=== PATIENT | female | born 1980 | race Caucasian/White ===

== ENCOUNTER 2017-06-02 13:07 | Emergency (ER) | payer SELFPAY | END 2017-06-02 14:00 | disposition home or self-care (01) | LOC: ER 13:07 | DX: S02.5XXA Fracture of tooth (traumatic), initial encounter for closed fracture (principal); Z90.49 Acquired absence of other specified parts of digestive tract; Z88.5 Allergy status to narcotic agent; Z88.8 Allergy status to other drugs, medicaments and biological substances; X58.XXXA Exposure to other specified factors, initial encounter; Y93.89 Activity, other specified; Y92.89 Other specified places as the place of occurrence of the external cause; Y99.8 Other external cause status | CPT/HCPCS: 99283 ==

== ENCOUNTER 2017-07-07 13:05 | Emergency (ER) | payer SELFPAY | END 2017-07-07 13:52 | disposition home or self-care (01) | LOC: ER 13:05 | DX: K08.89 Other specified disorders of teeth and supporting structures (principal); F12.10 Cannabis abuse, uncomplicated; Z88.1 Allergy status to other antibiotic agents; Z88.5 Allergy status to narcotic agent; Z88.8 Allergy status to other drugs, medicaments and biological substances; Z90.49 Acquired absence of other specified parts of digestive tract | CPT/HCPCS: 99283 ==